=== PATIENT | male | born 1990 | race African-American/Black ===

== ENCOUNTER → 2017-06-30 | Outpatient (CLI) | payer OTHER ==
--- NOTE | 2017-06-30 11:54 | KCIC ---
KNEE 2 VIEWS RIGHT Clinical Indication: Right anterior knee pain while running x1 month. No injury. Comparison: None. Findings: There is no acute fracture or dislocation. The tricompartmental joint spaces are maintained. The patella is in anatomic position. There is no soft tissue abnormality. There is no joint effusion. IMPRESSION: Negative two-view right knee. Electronically signed by: Wale Pham MD (06/30/2017 11:51 AM) [id number]
== END | disposition home or self-care (01) ==
LOC: KCIC 10:33
PROVIDERS: ATTEND Nurse Practitioner Family
DX: M25.561 Pain in right knee (principal)
CPT/HCPCS: 73560